=== PATIENT | male | born 2000 | race Caucasian/White ===

== ENCOUNTER 2020-07-22 14:30 | Outpatient (RCR) | payer OTHER, SELFPAY | END 2020-09-04 23:59 | LOC: IMMUN 14:30 | PROVIDERS: PCP Pediatrics; Visit Provider Family Medicine | DX: Z23 Encounter for immunization (principal) | CPT/HCPCS: 0001A; 91300 ==

== ENCOUNTER 2020-08-10 15:36 | Outpatient (RCR) | payer SELFPAY | END 2020-08-12 23:59 | LOC: NS 15:36 | PROVIDERS: PCP Pediatrics | DX: Z71.3 Dietary counseling and surveillance (principal); Z68.41 Body mass index [BMI] 40.0-44.9, adult | CPT/HCPCS: 97802 ==

== ENCOUNTER 2020-08-24 16:25 | Outpatient (RCR) | payer SELFPAY | END 2020-09-12 23:59 | LOC: NS 16:25 | PROVIDERS: PCP Pediatrics | DX: Z71.3 Dietary counseling and surveillance (principal) | CPT/HCPCS: 97803 ==

== ENCOUNTER 2020-09-22 16:15 | Outpatient (RCR) | payer SELFPAY | END 2020-10-13 23:59 | LOC: NS 16:15 | PROVIDERS: PCP Pediatrics | DX: Z71.3 Dietary counseling and surveillance (principal) | CPT/HCPCS: 97803 ==